=== PATIENT | male | born 1995 | race African-American/Black ===

== ENCOUNTER 2016-10-06 07:08 | Emergency (ER) | payer SELFPAY ==
[~2016-10-06] VITALS: Ht 190.5 cm; Wt 85.0 kg
[~2016-10-06 07:08] MED LIST: Z.0.NO CURRENT MEDS
[2016-10-06 07:10] VITALS: BP 122/80; PULSE 64; RESP 20; TEMP 97.9; O2SAT 99
--- NOTE | 2016-10-06 07:44 | PD ---
HPI Chief Complaint: Cold / Flu Symptoms Time Seen by Provider: 07:43 Travel History International Travel<30 days: No Contact w/Intl Traveler<30days: No Traveled to known affect area: No History of Present Illness HPI 20-year-old male presents to the emergency Department with complaint of sore throat since yesterday. Reports cough. Denies lump in throat, difficulty swallowing, unusual drooling. Reports painful swallowing. Denies ear pain, nasal congestion. Denies fever, vomiting. Reports headache. Has not taken any medications or tried any chance to review his symptoms. No known allergies. Has no other medical complaints. No other modifying factors or associated signs and symptoms. PFSH Social History Alcohol Use: Yes Tobacco Use: No Allergies-Medications (Allergen,Severity, Reaction): Coded Allergies: No Known Allergies (Unverified , 05/27/12) Reported Meds & Prescriptions Reported Meds & Active Scripts Active Magic Mouthwash Pediatric/Adult Liq (Lidocaine/Diphenhydr/Alum/Mg/Simeth) 60 Ml Susp 5 Ml SWISH-SPIT Q3HR PRN Each 5mL contains: Diphenydramine 4.5mg, Viscous Lidocaine 2% 10mg, Maalox Advanced Regular Strength 2.7ml Ibuprofen 800 Mg Tab 800 Mg PO Q6HR PRN Review of Systems Except as stated in HPI: all other systems reviewed are Neg Physical Exam Narrative GENERAL: Well-nourished, well-developed male patient, in no acute distress; afebrile, nontoxic-appearing SKIN: Warm and dry. No rash. HEAD: Atraumatic. Normocephalic. EYES: Pupils equal and round at 3 mm with brisk reaction. No scleral icterus. No injection or drainage. PERRLA. ENT: Mucosa pink and dry. Oropharynx with erythema; without exudate or edema. No Uvular edema. No uvular, palatal, or tonsillar deviation. Airway patent. EARS: Bilateral pinnae and external canals appear within normal limits. Bilateral tympanic membranes without erythema, dullness or perforation.. NECK: Trachea midline. Anterior cervical lymphadenopathy and tenderness. CARDIOVASCULAR: Regular rate and rhythm. No murmur appreciated. RESPIRATORY: No accessory muscle use. Clear to auscultation. Breath sounds equal bilaterally. GASTROINTESTINAL: Abdomen soft, non-tender, nondistended. Hepatic and splenic margins not palpable. Bowel sounds are active 4 quadrants. MUSCULOSKELETAL: No obvious deformities. No clubbing. No cyanosis. No edema. NEUROLOGICAL: Awake and alert. Oriented 3. No obvious cranial nerve deficits. Motor grossly within normal limits. Normal speech. Moves all extremities. PSYCHIATRIC: Appropriate mood and affect; insight and judgment normal. Data Data Last Documented VS Vital Signs Date Time Temp Pulse Resp B/P Pulse Ox O2 Delivery O2 Flow Rate FiO2 10/06/16 07:47 18 Room Air 10/06/16 07:10 97.9 64 122/80 99 Orders Group A Rapid Strep Screen (10/06/16 07:42) Strep Culture (Group A) (10/06/16 07:44) MDM Medical Decision Making Medical Screen Exam Complete: Yes Emergency Medical Condition: Yes Medical Record Reviewed: Yes Differential Diagnosis Viral pharyngitis, strep pharyngitis, less likely peritonsillar abscess Narrative Course 20-year-old male with sore throat since yesterday. Denies lump in throat, difficulty swallowing, unusual drooling. Patient is afebrile and nontoxic- appearing. He denies fever, vomiting. Rapid strep ordered. 0817: Rapid strep negative. Discussed viral illness and symptomatic management. Ibuprofen and Magic mouthwash prescribed for home. Patient verbalizes understanding and agreement with treatment plan. Patient is medically cleared and stable for discharge. Discussed reasons to return to the emergency department. Instructed patient to follow up with primary care provider. Patient agrees with treatment plan. The patients vital signs are stable and the patient is stable for outpatient follow-up and treatment. Patient discharged home, stable and in no acute distress. Diagnosis Primary Impression: Viral pharyngitis Referrals: Primary Care Physician Patient Instructions: General Instructions, Pharyngitis (ED) Departure Forms: Tests/Procedures, Work Release Enter return to work date: October 07, 2016 Additional Instructions: Get plenty of sleep/rest Rest your voice Drink plenty of fluids to prevent dehydration Use warm saltwater gargles to soothe throat pain Use an air humidifier/turn off ceiling fans Use throat lozenges as needed for sore throat Use ibuprofen or acetaminophen as needed to relieve pain and fever Follow-up with your primary care provider within 2-4 days Return immediately to the emergency department with worsening of symptoms Med/Other Pt SpecificInfo: Prescription(s) given Scripts Bdkxnkhjdiijfxu-Ckcnisvmw-Xnn-Alum-Simeth Liq (Magic Mouthwash Pediatric/Adult Liq)60 Ml Susp5 Ml SWISH-SPIT Q3HR PRN (SORE THROAT) #60 ML Ref 0 Each 5mL contains: Diphenydramine 4.5mg, Viscous Lidocaine 2% 10mg, Maalox Advanced Regular Strength 2.7ml Prov:Rosalia Braden 10/06/16 Ibuprofen 800 Mg [id number] Mg PO Q6HR PRN (PAIN) #30 TAB Ref 0 Prov:Rosalia Braden 10/06/16 Disposition: 01 DISCHARGE HOME Condition: Stable Rosalia Braden October 06, 2016 07:43
[2016-10-06] MEDS ORDERED: MAGICPED SWISH-SPIT (07:53)
[2016-10-06] MEDS ORDERED: IBUP800T23 PO (07:53)
== END 2016-10-06 08:31 | disposition home or self-care (01) ==
LOC: NEPK 07:08
DX: J02.9 Acute pharyngitis, unspecified (principal); B97.89 Other viral agents as the cause of diseases classified elsewhere; R05 Cough; R51 Headache
CPT/HCPCS: 87081; 87880; 99284

== ENCOUNTER 2016-10-08 09:15 | Emergency (ER) | payer SELFPAY ==
[~2016-10-08] VITALS: Ht 190.5 cm; Wt 84.0 kg
[~2016-10-08 09:15] MED LIST changes: +IBUP800T23 PO; +MAGICPED SWISH-SPIT; -Z.0.NO CURRENT MEDS
[2016-10-08 09:21] VITALS: BP 135/78; PULSE 76; RESP 15; TEMP 98.3; O2SAT 97
--- NOTE | 2016-10-08 09:37 | PD ---
HPI Chief Complaint: Cold / Flu Symptoms Time Seen by Provider: 09:37 Travel History International Travel<30 days: No Contact w/Intl Traveler<30days: No Traveled to known affect area: No History of Present Illness HPI 20-year-old male came to the emergency room with history of cough that worsened while he was at work at [employer]. He said he opened the oven door and when the heat last came out it made his cough worse and he was even unable to breathe at that point. He had to come out of the kitchen and go to the bathroom to catch his breath. Currently he seems absolutely fine. No respiratory issues. Patient says 2 days ago he was in the emergency room for sore throat as well. Yesterday he had a fever. The fever is gone today and he was feeling fine this morning when he woke up until the coughing episode happened. He is otherwise a healthy person. Patient does not recall any past history of reactive airway disease. [facility] Past Medical History Narrative Medical List of his past medical, surgical, social and family history is reviewed from the nursing note. Social History Alcohol Use: No Tobacco Use: Yes Substance Use: Yes (used to use marijuana") Allergies-Medications (Allergen,Severity, Reaction): Coded Allergies: No Known Allergies (Unverified , 10/08/16) Comments No known drug allergies. Reported Meds & Prescriptions Reported Meds & Active Scripts Active Ventolin Hfa 18 GM Inh (Albuterol Sulfate) 90 Mcg/Act Aer 2 Puff INH Q4-6H PRN Narrative Medication List of his home medications reviewed from the nursing note. Review of Systems Except as stated in HPI: all other systems reviewed are Neg Physical Exam Narrative GENERAL: Awake, alert, no obvious distress SKIN: Focused skin assessment warm/dry. HEAD: Atraumatic. Normocephalic. EYES: Pupils equal and round. No scleral icterus. No injection or drainage. ENT: No nasal bleeding or discharge. Mucous membranes pink and moist. NECK: Trachea midline. No JVD. CARDIOVASCULAR: Regular rate and rhythm. No murmur appreciated. RESPIRATORY: No accessory muscle use. Clear to auscultation. Breath sounds equal bilaterally. GASTROINTESTINAL: Abdomen soft, non-tender, nondistended. Hepatic and splenic margins not palpable. MUSCULOSKELETAL: No obvious deformities. No clubbing. No cyanosis. No edema. NEUROLOGICAL: Awake and alert. No obvious cranial nerve deficits. Motor grossly within normal limits. Normal speech. PSYCHIATRIC: Appropriate mood and affect; insight and judgment normal. Data Data Last Documented VS Vital Signs Date Time Temp Pulse Resp B/P Pulse Ox O2 Delivery O2 Flow Rate FiO2 10/08/16 09:21 98.3 76 15 135/78 97 MDM Medical Decision Making Medical Screen Exam Complete: Yes Emergency Medical Condition: Yes Medical Record Reviewed: Yes Differential Diagnosis Reactive airway disease, viral illness, bronchitis Narrative Course 9:45 AM patient will be discharged home with a prescription for albuterol inhaler. Procedures EKG Prior to Arrival: No Diagnosis Primary Impression: Reactive airway disease Qualified Code: J45.909 - Reactive airway disease, unspecified asthma severity , uncomplicated Referrals: Primary Care Physician 2 days Additional Instructions: Please return to the ER if the condition worsens or any other new concerns. You should quit smoking in order to get better. Take the inhaler 2 puffs every 4 hours till the symptoms subside. Med/Other Pt SpecificInfo: Prescription(s) given Scripts Albuterol 18 GM Inh (Ventolin Hfa 18 GM Inh)90 Mcg/Act Aer2 Puff INH Q4-6H PRN ( SHORTNESS OF BREATH) #1 INHALER Ref 0 Prov:Earl Pepe MD 10/08/16 Disposition: 01 DISCHARGE HOME Condition: Stable Earl Pepe MD October 08, 2016 09:37
[2016-10-08] MEDS ORDERED: VENTAER INH (09:46)
== END 2016-10-08 10:34 | disposition home or self-care (01) ==
LOC: NEPD 09:15
DX: J45.909 Unspecified asthma, uncomplicated (principal); Z72.0 Tobacco use
CPT/HCPCS: 99283

== ENCOUNTER 2016-11-16 08:24 | Emergency (ER) | payer SELFPAY ==
[~2016-11-16] VITALS: Ht 190.5 cm; Wt 85.0 kg
[~2016-11-16 08:24] MED LIST changes: -IBUP800T23 PO; -MAGICPED SWISH-SPIT; +VENTAER INH
[2016-11-16 08:26] VITALS: BP 113/74; PULSE 74; RESP 15; TEMP 98.2; O2SAT 98
[2016-11-16 08:40] VITALS: BP 115/61; PULSE 100; RESP 19; TEMP 98.4; O2SAT 99
[2016-11-16] MEDS ORDERED: SODIUM CHLOR 0.9% 1000 ML INJ 1,000 ML IV SCH (08:55)
[2016-11-16] MEDS ORDERED: SODIUM CHLORIDE 0.9% FLUSH 10 ML FLUSH IV FLUSH PRN (09:00)
[2016-11-16] MEDS ORDERED: ONDANSETRON HCL 4 MG/2 ML VIAL IVP ONE (09:00)
--- NOTE | 2016-11-16 09:03 | PD ---
HPI Chief Complaint: Flank/Kidney Pain Time Seen by Provider: 08:55 Travel History International Travel<30 days: No Contact w/Intl Traveler<30days: No Traveled to known affect area: No History of Present Illness HPI 20-year-old male with history of no significant past medical issues, presents to the ER today because he is having lower back pains, nausea and vomiting, not feeling well since yesterday. He denies any diarrhea, but has had subjective fevers. He does not know any sick contacts. He states that the pain is currently a 7 out of 10. Modifying Factors: None Associated Signs & Symptoms: Aching lower back pains, nausea and vomiting Risk Factors: None PFSH Past Medical History Medical History: Denies Significant Hx Tetanus Vaccination: > 5 Years Past Surgical History Surgical History: No Previous Surgery Social History Alcohol Use: No Tobacco Use: Yes Substance Use: Yes (used to use marijuana") Allergies-Medications (Allergen,Severity, Reaction): Coded Allergies: No Known Allergies (Unverified , 11/16/16) Reported Meds & Prescriptions Reported Meds & Active Scripts Active Ventolin Hfa 18 GM Inh (Albuterol Sulfate) 90 Mcg/Act Aer 2 Puff INH Q4-6H PRN Review of Systems Except as stated in HPI: all other systems reviewed are Neg Physical Exam Narrative GENERAL: Well-developed young -[place] male patient currently in mild distress. Awake and oriented 3. SKIN: Focused skin assessment warm/dry. HEAD: Atraumatic. Normocephalic. EYES: Pupils equal and round. No scleral icterus. No injection or drainage. ENT: No nasal bleeding or discharge. Mucous membranes pink and moist. NECK: Trachea midline. No JVD. CARDIOVASCULAR: Regular rate and rhythm. No murmur appreciated. RESPIRATORY: No accessory muscle use. Clear to auscultation. Breath sounds equal bilaterally. GASTROINTESTINAL: Abdomen soft, non-tender, nondistended. Hepatic and splenic margins not palpable. MUSCULOSKELETAL: No obvious deformities. No clubbing. No cyanosis. No edema. NEUROLOGICAL: Awake and alert. No obvious cranial nerve deficits. Motor grossly within normal limits. Normal speech. PSYCHIATRIC: Appropriate mood and affect; insight and judgment normal. Data Data Last Documented VS Vital Signs Date Time Temp Pulse Resp B/P Pulse Ox O2 Delivery O2 Flow Rate FiO2 11/16/16 08:40 98.4 100 19 115/61 99 Orders Complete Blood Count With Diff (11/16/16 08:55) Lipase (11/16/16 08:55) Urinalysis - C+S If Indicated (11/16/16 08:55) Iv Access Insert/Monitor (11/16/16 08:55) Ecg Monitoring (11/16/16 08:55) Oximetry (11/16/16 08:55) Ondansetron Inj (Zofran Inj) (11/16/16 09:00) Sodium Chlor 0.9% 1000 Ml Inj (Ns 1000 M (11/16/16 08:55) Sodium Chloride 0.9% Flush (Ns Flush) (11/16/16 09:00) Comprehensive Metabolic Panel (11/16/16 09:29) Ct Abd/Pel W/O Iv Contrast (11/16/16 09:44) Labs Laboratory Tests Test 11/16/16 09:00 White Blood Count 14.1 TH/MM3 Red Blood Count 4.59 MIL/MM3 Hemoglobin 13.4 GM/DL Hematocrit 39.3 % Mean Corpuscular Volume 85.7 FL Mean Corpuscular Hemoglobin 29.1 PG Mean Corpuscular Hemoglobin 34.0 % Concent Red Cell Distribution Width 13.9 % Platelet Count 208 TH/MM3 Mean Platelet Volume 9.3 FL Neutrophils (%) (Auto) 86.5 % Lymphocytes (%) (Auto) 6.9 % Monocytes (%) (Auto) 6.5 % Eosinophils (%) (Auto) 0.0 % Basophils (%) (Auto) 0.1 % Neutrophils # (Auto) 12.2 TH/MM3 Lymphocytes # (Auto) 1.0 TH/MM3 Monocytes # (Auto) 0.9 TH/MM3 Eosinophils # (Auto) 0.0 TH/MM3 Basophils # (Auto) 0.0 TH/MM3 CBC Comment DIFF FINAL Differential Comment Urine Color YELLOW Urine Turbidity CLEAR Urine pH 7.5 Urine Specific [place] 1.029 Urine Protein 30 mg/dL Urine Glucose (UA) NEG mg/dL Urine Ketones NEG mg/dL Urine Occult Blood SMALL Urine Nitrite NEG Urine Bilirubin NEG Urine Urobilinogen 2.0 MG/DL Urine Leukocyte Esterase NEG Urine RBC 22 /hpf Urine WBC 1 /hpf Urine Bacteria OCC /hpf Urine Mucus FEW /lpf Microscopic Urinalysis Comment CULT NOT INDICATED Sodium Level 136 MEQ/L Potassium Level 3.6 MEQ/L Chloride Level 102 MEQ/L Carbon Dioxide Level 21.6 MEQ/L Anion Gap 12 MEQ/L Blood Urea Nitrogen 10 MG/DL Creatinine 1.73 MG/DL Estimat Glomerular Filtration 61 ML/MIN Rate Random Glucose 142 MG/DL Calcium Level 9.3 MG/DL Total Bilirubin 0.5 MG/DL Aspartate Amino Transf 12 U/L (AST/SGOT) Alanine Aminotransferase 21 U/L (ALT/SGPT) Alkaline Phosphatase 61 U/L Total Protein 7.8 GM/DL Albumin 4.2 GM/DL Lipase 90 U/L MDM Medical Decision Making Medical Screen Exam Complete: Yes Emergency Medical Condition: Yes Medical Record Reviewed: Yes Interpretation(s) Laboratory Tests Test 11/16/16 09:00 White Blood Count 14.1 TH/MM3 (4.0-11.0) Neutrophils (%) (Auto) 86.5 % (16.0-70.0) Lymphocytes (%) (Auto) 6.9 % (9.0-44.0) Neutrophils # (Auto) 12.2 TH/MM3 (1.8-7.7) Urine Protein 30 mg/dL (NEG-TRACE) Urine Occult Blood SMALL (NEG) Urine RBC 22 /hpf (0-3) Urine Bacteria OCC /hpf (NONE) Urine Mucus FEW /lpf (OCC) Creatinine 1.73 MG/DL (0.60-1.30) Estimat Glomerular Filtration 61 ML/MIN (>89) Rate Random Glucose 142 MG/DL (74-106) Aspartate Amino Transf 12 U/L (15-37) (AST/SGOT) Last 24 hours Impressions Abdomen/Pelvis CT 11/16/16 0944 Signed Impressions: Service Date/Time: Wednesday, November 16, 2016 10:16 - CONCLUSION: There is no renal stone or obstruction. Lack of intravenous contrast makes exclusion of pyelonephritis difficult. Robby Zuniga MD FACR Differential Diagnosis Lower back pain, nausea and vomiting, malaiseviral syndrome versus UTI versus musculoskeletal back pain versus renal colic Narrative Course CAT scans did not show any signs of acute processes. Lab work did show leukocytosis and some blood in the urine. No obvious UTI identified. At this point, my plan would be to treat him with antibiotics, symptomatic relief, and have him follow-up with primary care physician. Return for any worsening in symptoms as needed. The plan was discussed with him and he states understanding. Diagnosis Primary Impression: Abdominal pain Additional Impression: Hematuria Med/Other Pt SpecificInfo: Prescription(s) given Scripts Ibuprofen (Motrin Ib)200 Mg [id number] Mg PO Q6HR PRN (PAIN SCALE 1 TO 10) #21 Prov:Mayte Nicholas MD 11/16/16 Ciprofloxacin (Cipro)500 Mg Agm262 Mg PO BID 7 Days Ref 0 Prov:Mayte Nicholas MD 11/16/16 Disposition: 01 DISCHARGE HOME Condition: Stable Mayte Nicholas MD Nov 16, 2016 09:02
[2016-11-16 09:20] LABS: AUTOMATED NEUTROPHIL # 12.2 TH/MM3 (1.8-7.7); BACTERIA, URINE OCC /hpf; BASOPHIL % 0.1 % (0.0-2.0); BLOOD, URINE SMALL (NEG); COMMENT (UR) CULT NOT INDICATED; CULTURE IF INDICATED CULT NOT INDICATED; GLUCOSE,URINE NEG (NEG); HEMATOCRIT 39.3 % (39.0-51.0); HEMO FLAGS DIFF FINAL; KETONE, URINE NEG (NEG); LYMPH % 6.9 % (9.0-44.0); MEAN CELL VOLUME 85.7 FL (80.0-100.0); MEAN CORPUSCULAR HEMOGLOBIN 29.1 PG (27.0-34.0); MONO % 6.5 % (0.0-8.0); MUCUS URINE FEW /lpf (OCC); NEUT % 86.5 % (16.0-70.0); NITRITE,URINE NEG (NEG); PH, URINE 7.5 (5.0-8.5); PLATELET COUNT 208 TH/MM3 (150-450); RED BLOOD COUNT 4.59 MIL/MM3 (4.50-5.90); RED CELL DISTRIBUTION WIDTH 13.9 % (11.6-17.2); URINE COLOR YELLOW (YELLW/STRAW); WHITE BLOOD COUNT 14.1 TH/MM3 (4.0-11.0)
[2016-11-16 09:52] LABS: ANION GAP 12 MEQ/L (5-15); AST (GOT) 12 U/L (15-37); BICARBONATE 21.6 MEQ/L (21.0-32.0); BLOOD UREA NITROGEN 10 MG/DL (7-18); CHLORIDE 102 MEQ/L (98-107); GLOMERULAR FILTRATION RATE 61 ML/MIN (>89); POTASSIUM 3.6 MEQ/L (3.5-5.1); SODIUM (NA) 136 MEQ/L (136-145)
[2016-11-16 09:53] LABS: ALT (GPT) 21 U/L (12-78)
[2016-11-16 09:56] LABS: ALKALINE PHOSPHATASE 61 U/L (45-117); TOTAL BILIRUBIN ADULT 0.5 MG/DL (0.2-1.0)
--- NOTE | 2016-11-16 10:44 | RADRPT ---
EXAM DATE/TIME: 11/16/2016 10:16 [facility] COMPARISON: No previous studies available for comparison. INDICATIONS : Right flank pain. ORAL CONTRAST: No oral contrast ingested. RADIATION DOSE: 9.96 CTDIvol (mGy) MEDICAL HISTORY : None SURGICAL HISTORY : None. ENCOUNTER: Initial ACUITY: 2 days PAIN SCALE: 5/10 LOCATION: Right flank TECHNIQUE: Volumetric scanning of the abdomen and pelvis was performed. Using automated exposure control and ad justment of the mA and/or kV according to patient size, radiation dose was kept as low as reasonably achievable to obtain optimal diagnostic quality images. FINDINGS: The lung base is are clear The liver, spleen, pancreas and adrenals are unremarkable. The right kidney there is no stone or perinephric stranding. Left kidney: The left kidney is unremarkable. There is no adenopathy, free air or hernia Pelvic contents are normal. Review of bone windows reveals mild degenerative changes in lower lumbar spine. CONCLUSION: There is no renal stone or obstruction. Lack of intravenous contrast makes exclusion of pyelonephrit is difficult. Robby Zuniga MD FACR on November 16, 2016 at 10:40 Board Certified Radiologist. This report was verified electronically.
[2016-11-16] MEDS ORDERED: CIPR-9 PO (11:05)
[2016-11-16] MEDS ORDERED: IBUP-1129 PO (11:05)
== END 2016-11-16 12:01 | disposition home or self-care (01) ==
LOC: NEPC 08:24
DX: R10.9 Unspecified abdominal pain (principal); R31.9 Hematuria, unspecified; R11.2 Nausea with vomiting, unspecified; Z72.0 Tobacco use
CPT/HCPCS: 74176; 80053; 81001; 83690; 85025; 96361; 96374; 99285; J2405; J7030

== ENCOUNTER 2016-12-11 10:52 | Emergency (ER) | payer SELFPAY ==
[~2016-12-11] VITALS: Ht 190.5 cm; Wt 85.0 kg
[~2016-12-11 10:52] MED LIST changes: +CIPR-9 PO; +IBUP-1129 PO
[2016-12-11 10:54] VITALS: BP 125/77; PULSE 77; RESP 20; TEMP 97.9
[2016-12-11] MEDS ORDERED: IBUP800T23 PO (12:01)
[2016-12-11] MEDS ORDERED: AMOX500C PO (12:01)
[2016-12-11] MEDS ORDERED: PERI0.126 SWISH-SPIT (12:01)
--- NOTE | 2016-12-11 12:04 | PD ---
HPI Chief Complaint: Oral / Dental Pain or Problem Time Seen by Provider: 12:00 Travel History International Travel<30 days: No Contact w/Intl Traveler<30days: No Traveled to known affect area: No History of Present Illness HPI 20-year-old male presents emergency Department with complaint of left lower tooth pain 2 weeks. Denies facial edema, erythema. Denies fever, vomiting. Denies throat pain, difficulty swallowing. Says there is an area around the tooth that is bleeding and wants to make sure that when he spits up for the blood is coming from. Tooth pain is worse with palpation. Has been using Orajel for symptom management. No known allergies. Has no other medical complaints. No other modifying factors or associated signs and symptoms. [facility] Social History Alcohol Use: No Tobacco Use: Yes Substance Use: Yes (used to use marijuana") Allergies-Medications (Allergen,Severity, Reaction): Coded Allergies: No Known Allergies (Unverified , 12/11/16) Reported Meds & Prescriptions Reported Meds & Active Scripts Active Peridex Liq (Chlorhexidine Gluconate (Mouth) Liq) 0.12% Soln 15 Ml SWISH-SPIT BID 10 Days Ibuprofen 800 Mg Tab 800 Mg PO Q6HR PRN Amoxicillin 500 Mg Cap 500 Mg PO BID 10 Days Cipro (Ciprofloxacin HCl) 500 Mg Tab 500 Mg PO BID 7 Days Review of Systems Except as stated in HPI: all other systems reviewed are Neg Physical Exam Narrative GENERAL: Well-nourished, well-developed male patient, in no acute distress; afebrile, nontoxic-appearing SKIN: Warm and dry. HEAD: Atraumatic. Normocephalic. No facial edema, erythema, tenderness on palpation. No lymphadenopathy. EYES: Pupils equal and round. No scleral icterus. No injection or drainage. ENT: Mucosa pink and moist. No erythema or exudates. No uvular edema. No uvular , palatal, or tonsillar deviation. Airway patent. MOUTH: Mucous membranes moist, no lesions, tongue and gums appear normal. Tooth #17 with tenderness on palpation; part of the gingiva is overlying the tooth and has a very minimal amount of bright red drainage noted. Surrounding gingiva is without erythema, edema, drainage. No obvious abscess noted. NECK: Trachea midline. No lymphadenopathy. CARDIOVASCULAR: Regular rate. RESPIRATORY: No accessory muscle use. GASTROINTESTINAL: Flat. MUSCULOSKELETAL: No obvious deformities. No clubbing. No cyanosis. No edema. NEUROLOGICAL: Awake and alert. Oriented 3. No obvious cranial nerve deficits. Motor grossly within normal limits. Normal speech. PSYCHIATRIC: Appropriate mood and affect; insight and judgment normal. Data Data Last Documented VS Vital Signs Date Time Temp Pulse Resp B/P Pulse Ox O2 Delivery O2 Flow Rate FiO2 12/11/16 10:54 97.9 77 20 125/77 Room Air MDM Medical Decision Making Medical Screen Exam Complete: Yes Emergency Medical Condition: Yes Medical Record Reviewed: Yes Differential Diagnosis Dentalgia, dental abscess, dental caries, gingivitis Narrative Course 20-year-old male with dentalgia to tooth #17. No facial edema, erythema. No fever or vomiting. Emergency dental information sheet provided to patient. Instructed patient to follow up with dentist. Amoxicillin, Peridex mouth rinse , ibuprofen prescribed for home. Instructed patient to follow up with primary care provider. Patient verbalizes understanding and agreement with treatment plan. Patient is medically cleared and stable for discharge. Discussed reasons to return to the emergency department. Patient agrees with treatment plan. The patients vital signs are stable and the patient is stable for outpatient follow-up and treatment. Patient discharged home, stable and in no acute distress. Diagnosis Primary Impression: Dentalgia Referrals: Primary Care Physician Patient Instructions: Dental Abscess (ED), General Instructions, Toothache (ED) Departure Forms: Tests/Procedures, Work Release Enter return to work date: Dec 12, 2016 Additional Instructions: Complete full course of antibiotics Ibuprofen or Tylenol as directed and as needed to reduce pain and inflammation Use Peridex as directed for oral hygiene Warm or cool compresses to the affected area Follow-up with dentist Follow-up with primary care provider Return to emergency department immediately with worsening of symptoms Med/Other Pt SpecificInfo: Prescription(s) given Scripts Chlorhexidine Gluconate (Mouth) Liq (Peridex Liq)0.12% Soln15 Ml SWISH-SPIT BID 10 Days Ref 0 Prov:Rosalia Braden 12/11/16 Ibuprofen 800 Mg [id number] Mg PO Q6HR PRN (PAIN) #30 TAB Ref 0 Prov:Rosalia Braden BIOLOGICS SPECIALIST 12/11/16 Amoxicillin 500 Mg Cly453 Mg PO BID 10 Days Ref 0 Prov:Rosalia Braden 12/11/16 Disposition: 01 DISCHARGE HOME Condition: Stable Rosalia Braden Dec 11, 2016 12:04
== END 2016-12-11 12:48 | disposition home or self-care (01) ==
LOC: NEPK 10:52
DX: K08.89 Other specified disorders of teeth and supporting structures (principal)
CPT/HCPCS: 99284

== ENCOUNTER 2017-01-01 22:14 | Emergency (ER) | payer SELFPAY ==
[~2017-01-01] VITALS: Ht 190.5 cm; Wt 85.0 kg
[~2017-01-01 22:14] MED LIST changes: +AMOX500C PO; -IBUP-1129 PO; +IBUP800T23 PO; +PERI0.126 SWISH-SPIT; -VENTAER INH
[2017-01-01 22:21] VITALS: BP 146/92; PULSE 102; RESP 15; TEMP 99; O2SAT 99
--- NOTE | 2017-01-01 22:28 | PD ---
Physical Exam Time Seen by Provider: 22:26 Narrative 21 y/o male here with occasional needle-like chest pain, cough with orange- tinted sputum which started 30 minutes ago. Vital signs reviewed. Seen at triage desk. Awaiting bed placement. Data Data Last Documented VS Vital Signs Date Time Temp Pulse Resp B/P Pulse Ox O2 Delivery O2 Flow Rate FiO2 01/01/17 22:21 99.0 102 15 146/92 99 Room Air [facility] Medical Record Reviewed: Yes Supervised Visit with ASHWIN: Angel Luis Cardenas Jan 01, 2017 22:27
[2017-01-01 23:37] LABS: AUTOMATED NEUTROPHIL # 4.9 TH/MM3 (1.8-7.7); BASOPHIL % 0.3 % (0.0-2.0); EOSINOPHIL # 0.2 TH/MM3 (0-0.4); HEMATOCRIT 44.5 % (39.0-51.0); HEMO FLAGS DIFF FINAL; LYMPH % 31.5 % (9.0-44.0); LYMPHOCYTE # 2.6 TH/MM3 (1.0-4.8); MEAN CORPUSCULAR HEMOGLOBIN 29.2 PG (27.0-34.0); MEAN CORPUSCULAR HGB CONC 33.6 % (32.0-36.0); MONO % 6.8 % (0.0-8.0); NEUT % 59.4 % (16.0-70.0); PLATELET COUNT 275 TH/MM3 (150-450); RED BLOOD COUNT 5.11 MIL/MM3 (4.50-5.90); WHITE BLOOD COUNT 8.3 TH/MM3 (4.0-11.0)
--- NOTE | 2017-01-01 23:40 | RADRPT ---
EXAM DATE/TIME: 01/01/2017 23:23 [facility] COMPARISON: No previous studies available for comparison. INDICATIONS : Chest pain. MEDICAL HISTORY : None. SURGICAL HISTORY : None. ENCOUNTER: Initial ACUITY: 2 weeks PAIN SCORE: 4/10 LOCATION: chest FINDINGS: Single AP view of the chest. The lungs are clear. Cardiomediastinal silhouette within normal limits. No evidence of pleural effusion or pneumothorax. CONCLUSION: No acute cardiopulmonary disease identified. Harvinder Lindsay MD on January 01, 2017 at 23:38 Board Certified Radiologist. This report was verified electronically.
--- NOTE | 2017-01-01 23:43 | PD ---
HPI . Chest pain Chief Complaint: Chest Pain Time Seen by Provider: 23:22 Travel History International Travel<30 days: No Contact w/Intl Traveler<30days: No Traveled to known affect area: No History of Present Illness HPI Patient presents with a chief complaint of chest pain. Onset a week. He describes it as a pins and needles which comes and goes. He states that his symptoms are very minor. He has been perusing the Internet and became concerned and decided to come get it checked out tonight. The patient also states that he spit up something orange tonight. He states he did eat something orange prior to this but he just wants to make sure that it is okay. He reports no exacerbating or relieving factors. PFSH Past Medical History Medical History: Denies Significant Hx Diminished Hearing: No Immunizations Current: Yes Tetanus Vaccination: > 5 Years Influenza Vaccination: No Past Surgical History Surgical History: No Previous Surgery Social History Alcohol Use: No Tobacco Use: Yes (6 per day) Substance Use: Yes (marijuana) Allergies-Medications (Allergen,Severity, Reaction): Coded Allergies: No Known Allergies (Unverified , 01/01/17) Reported Meds & Prescriptions Reported Meds & Active Scripts Active No Active Prescriptions or Reported Medications Review of Systems Except as stated in HPI: all other systems reviewed are Neg Cardiovascular: Positive: Chest Pain or Discomfort Respiratory: No: Cough, Shortness of Breath Gastrointestinal: No: Nausea, Vomiting, Diarrhea Physical Exam Narrative GENERAL: Patient is smiling in no distress. SKIN: Warm and dry. HEAD: Atraumatic. Normocephalic. EYES: Pupils equal and round. Extraocular movements are intact. ENT: No nasal bleeding or discharge. Mucous membranes pink and moist. NECK: Trachea midline. Neck is supple. CARDIOVASCULAR: Regular rate and rhythm. Heart sounds are normal. RESPIRATORY: No accessory muscle use. Lungs are clear with full air movement throughout. Chest wall is nontender. GASTROINTESTINAL: Abdomen soft, non-tender, nondistended. MUSCULOSKELETAL: No obvious deformities. No edema. NEUROLOGICAL: Awake and alert. No obvious cranial nerve deficits. Motor grossly within normal limits. Normal speech. PSYCHIATRIC: Appropriate mood and affect; insight and judgment normal. Data Data Last Documented VS Vital Signs Date Time Temp Pulse Resp B/P Pulse Ox O2 Delivery O2 Flow Rate FiO2 01/01/17 22:21 99.0 102 15 146/92 99 Room Air Orders Basic Metabolic Panel (Bmp) (01/01/17 23:22) Ckmb (Isoenzyme) Profile (01/01/17 23:22) Complete Blood Count With Diff (01/01/17 23:22) Magnesium (Mg) (01/01/17 23:22) Troponin I (01/01/17 23:22) Chest, Single Ap (01/01/17 23:22) CKMB (01/01/17 23:25) CKMB% (01/01/17 23:25) Labs Laboratory Tests Test 01/01/17 23:25 White Blood Count 8.3 TH/MM3 Red Blood Count 5.11 MIL/MM3 Hemoglobin 14.9 GM/DL Hematocrit 44.5 % Mean Corpuscular Volume 87.0 FL Mean Corpuscular Hemoglobin 29.2 PG Mean Corpuscular Hemoglobin 33.6 % Concent Red Cell Distribution Width 14.0 % Platelet Count 275 TH/MM3 Mean Platelet Volume 8.5 FL Neutrophils (%) (Auto) 59.4 % Lymphocytes (%) (Auto) 31.5 % Monocytes (%) (Auto) 6.8 % Eosinophils (%) (Auto) 2.0 % Basophils (%) (Auto) 0.3 % Neutrophils # (Auto) 4.9 TH/MM3 Lymphocytes # (Auto) 2.6 TH/MM3 Monocytes # (Auto) 0.6 TH/MM3 Eosinophils # (Auto) 0.2 TH/MM3 Basophils # (Auto) 0.0 TH/MM3 CBC Comment DIFF FINAL Differential Comment Sodium Level 141 MEQ/L Potassium Level 3.8 MEQ/L Chloride Level 105 MEQ/L Carbon Dioxide Level 29.8 MEQ/L Anion Gap 6 MEQ/L Blood Urea Nitrogen 15 MG/DL Creatinine 1.50 MG/DL Estimat Glomerular Filtration 71 ML/MIN Rate Random Glucose 83 MG/DL Calcium Level 9.7 MG/DL Magnesium Level 2.4 MG/DL Total Creatine Kinase 324 U/L Creatine Kinase MB LESS THAN 0.5 NG/ML Creatine Kinase MB % 0.2 % Troponin I LESS THAN 0.02 NG/ML MDM Medical Decision Making Medical Screen Exam Complete: Yes Emergency Medical Condition: Yes Interpretation(s) EKG shows a normal sinus rhythm. He has LVH. He has no ST segment elevation or depression. Differential Diagnosis Differential diagnosis of chest pain includes but is not limited to musculoskeletal pain, pulmonary embolism, acute coronary syndrome, pneumonia, pleurisy Narrative Course Patient presents with a pins and needle sensation in his chest for the last week. The symptoms are brief and very minor. I suspect that he will be evaluated and discharged. CBC & BMP Diagram 01/01/17 23:25 Cardiac enzymes negative Last Impressions Chest X-Ray 01/01/17 [id number] Signed Impressions: Service Date/Time: , January 01, 2017 23:23 - CONCLUSION: No acute cardiopulmonary disease identified. Harvinder Lindsay MD The history, exam, diagnostic testing, and current condition do not suggest any significant pathology to warrant further testing, continued ED treatment, admission, or surgical evaluation at this point. The patient's condition is stable and appropriate for discharge. Diagnosis Primary Impression: Chest pain Qualified Code: R07.9 - Chest pain, unspecified type Scripts No Active Prescriptions or Reported Meds Disposition: 01 DISCHARGE HOME Condition: Stable Vanessa Ceballos MD Jan 01, 2017 23:42
[2017-01-02 00:05] LABS: CREATINE KINASE 324 U/L (39-308)
[2017-01-02 00:18] LABS: CKMB LESS THAN 0.5 NG/ML (0.5-3.6)
[2017-01-02 00:28] LABS: ANION GAP 6 MEQ/L (5-15); BICARBONATE 29.8 MEQ/L (21.0-32.0); BLOOD UREA NITROGEN 15 MG/DL (7-18); CHLORIDE 105 MEQ/L (98-107); GLOMERULAR FILTRATION RATE 71 ML/MIN (>89); MAGNESIUM 2.4 MG/DL (1.5-2.5); POTASSIUM 3.8 MEQ/L (3.5-5.1); SODIUM (NA) 141 MEQ/L (136-145)
--- NOTE | 2017-01-02 07:53 | EKG ---
Date Performed: 01/01/2017 Time Performed: 22:55:37 PTAGE: 21 years EKG: Sinus rhythm LEFT VENTRICULAR HYPERTROPHY AND ST-T CHANGE ABNORMAL ECG NO PREVIOUS TRACING DOCTOR: Colby Hanna Interpretating Date/Time 01/02/2017 07:52:42
== END 2017-01-02 00:58 | disposition home or self-care (01) ==
LOC: NEPE 22:14
DX: R07.9 Chest pain, unspecified (principal); I51.7 Cardiomegaly; R94.31 Abnormal electrocardiogram [ECG] [EKG]; F17.200 Nicotine dependence, unspecified, uncomplicated
CPT/HCPCS: 71010; 80048; 82550; 82552; 83735; 84484; 85025; 93005; 99284

== ENCOUNTER 2017-03-11 14:09 | Emergency (ER) | payer SELFPAY ==
[~2017-03-11] VITALS: Ht 190.5 cm; Wt 88.0 kg
[2017-03-11 14:10] VITALS: BP 127/77; PULSE 64; RESP 16; TEMP 97.9; O2SAT 100
--- NOTE | 2017-03-11 14:26 | PD ---
Physical Exam Date Seen by Provider: Mar 11, 2017 Time Seen by Provider: 14:25 Narrative 21 year old male here for chest pain. pressure like. Going on for months but worst recently. Worst on left. No other medical issues. No injuries. 10. Tightness Vitals stable in triage. Awaiting bed placement. Data Data Last Documented VS Vital Signs Date Time Temp Pulse Resp B/P (MAP) Pulse Ox O2 Delivery O2 Flow Rate FiO2 03/11/17 14:10 97.9 64 16 127/77 (94) 100 Room Air [facility] Medical Record Reviewed: Yes Supervised Visit with ASHWIN: No Scripts No Active Prescriptions or Reported Meds Javier Gonzalez Mar 11, 2017 14:26
--- NOTE | 2017-03-11 15:08 | RADRPT ---
EXAM DATE/TIME: 03/11/2017 14:52 [place] COMPARISON: No previous studies available for comparison. INDICATIONS : Chest pain. MEDICAL HISTORY : Smoker. SURGICAL HISTORY : None. ENCOUNTER: Initial ACUITY: 1 day PAIN SCORE: 6/10 LOCATION: Bilateral chest FINDINGS: PA and lateral views of the chest demonstrate the lungs to be symmetrically aerated without evidence of mass, infiltrate or effusion. The cardiomediastinal contours are unremarkable. Osseous structure s are intact. CONCLUSION: 1. No acute cardiopulmonary disease. Nolberto Lopez MD on March 11, 2017 at 15:07 Board Certified Radiologist. This report was verified electronically.
--- NOTE | 2017-03-11 15:33 | PD ---
HPI Chief Complaint: Chest Pain Time Seen by Provider: 15:33 Travel History International Travel<30 days: No Contact w/Intl Traveler<30days: No Traveled to known affect area: No History of Present Illness HPI 21-year-old male with no significant medical history presents to emergency department for evaluation of intermittent chest wall tightness over the last month. Abrasion states it happens mostly after a workout or running. Denies any association shortness of breath. It does not radiate anywhere. He feels as though his muscle spasm. He stopped smoking tobacco cigarettes marijuana 4 days ago with hopes that this would help. Denies any recent illnesses, fever, chills. He has no other symptoms to report. He has no cardiac history. [facility] Past Medical History Medical History: Denies Significant Hx Diminished Hearing: No Immunizations Current: Yes Social History Alcohol Use: No Tobacco Use: Yes (6 per day) Substance Use: Yes (marijuana) Allergies-Medications (Allergen,Severity, Reaction): Coded Allergies: No Known Allergies (Unverified , 03/11/17) Reported Meds & Prescriptions Reported Meds & Active Scripts Active No Active Prescriptions or Reported Medications Review of Systems Except as stated in HPI: all other systems reviewed are Neg Physical Exam Narrative GENERAL: Well-nourished, well-developed patient, ambulatory no acute distress SKIN: Focused skin assessment warm/dry. HEAD: Normocephalic. EYES: No scleral icterus. No injection or drainage. NECK: Supple, trachea midline. No JVD or lymphadenopathy. CARDIOVASCULAR: Regular rate and rhythm without murmurs, gallops, or rubs. RESPIRATORY: Breath sounds equal bilaterally. No accessory muscle use. No tenderness elicited palpation of the anterior thoracic cage. No crepitus. Even respirations. GASTROINTESTINAL: Abdomen soft, non-tender, nondistended. MUSCULOSKELETAL: No cyanosis, or edema. BACK: Nontender without obvious deformity. No CVA tenderness. Data Data Last Documented VS Vital Signs Date Time Temp Pulse Resp B/P (MAP) Pulse Ox O2 Delivery O2 Flow Rate FiO2 03/11/17 15:55 03/11/17 15:39 69 16 99 Room Air 03/11/17 14:10 97.9 Orders Orders Chest, Pa & Lat (03/11/17 ) [facility] Medical Decision Making Medical Screen Exam Complete: Yes Emergency Medical Condition: Yes Medical Record Reviewed: Yes Differential Diagnosis Muscle spasm versus strain versus pleuritic pain Narrative Course 21-year-old male presents to the emergency department for evaluation of intermittent chest wall tightness over the last month. Patient appears without distress. He is currently not having any symptoms. He has no cardiac history. Chest x-rays without acute cardiopulmonary pulmonary disease. I offered reassurance and encouraged follow-up with primary care provider. He agrees to return immediately with any acute worsening of symptoms. Diagnosis Primary Impression: Chest wall muscle strain Qualified Codes: S29.011A - Strain of muscle and tendon of front wall of thorax, initial encounter Referrals: Primary Care Physician Patient Instructions: Chest Wall Pain (GEN), General Instructions Additional Instructions: Tylenol or ibuprofen as dry for the package as needed for pain Follow-up with a primary care provider Return immediately with any acute worsening of symptoms Med/Other Pt SpecificInfo: No Change to Meds Scripts No Active Prescriptions or Reported Meds Disposition: 01 DISCHARGE HOME Condition: Stable Luna Mora Mar 11, 2017 15:33
[2017-03-11 15:39] VITALS: BP 136/83; PULSE 69; RESP 16; O2SAT 99
== END 2017-03-11 15:57 | disposition home or self-care (01) ==
LOC: NEPD 14:09
DX: S29.011A Strain of muscle and tendon of front wall of thorax, initial encounter (principal); F17.210 Nicotine dependence, cigarettes, uncomplicated; X58.XXXA Exposure to other specified factors, initial encounter
CPT/HCPCS: 71020; 99283

== ENCOUNTER 2017-03-29 18:09 | Emergency (ER) | payer SELFPAY ==
[~2017-03-29] VITALS: Ht 190.5 cm; Wt 87.2 kg
[2017-03-29 18:11] VITALS: BP 126/73; PULSE 75; RESP 18; TEMP 99.1; O2SAT 100
--- NOTE | 2017-03-29 19:24 | PD ---
HPI Chief Complaint: Abdominal Pain Time Seen by Provider: 19:10 Travel History International Travel<30 days: No Contact w/Intl Traveler<30days: No Traveled to known affect area: No History of Present Illness HPI 21-year-old male complaining of left-sided abdominal pressure and urinary frequency. Patient states that the symptoms started this afternoon. Patient states that he has mild pressure on the left side of the abdomen, not pain. Patient denies any injury to the area. Patient denies any fever chills. Patient denies any coughing congestion. Patient states that the pressure does not change with movement. Patient denies any nausea vomiting diarrhea. Patient denies any dysuria. Patient denies any back pain. PFSH Past Medical History Diminished Hearing: No Respiratory: Yes (ACUTE BRONCHITIS) Immunizations Current: Yes Tetanus Vaccination: Unknown Influenza Vaccination: No Past Surgical History Surgical History: No Previous Surgery Social History Alcohol Use: No Tobacco Use: Yes (6 per day) Substance Use: Yes (marijuana) Allergies-Medications (Allergen,Severity, Reaction): Coded Allergies: No Known Allergies (Unverified , 03/29/17) Reported Meds & Prescriptions Reported Meds & Active Scripts Active No Active Prescriptions or Reported Medications Review of Systems General / Constitutional: No: Fever Eyes: No: Visual changes HENT: No: Headaches Cardiovascular: No: Chest Pain or Discomfort Respiratory: No: Shortness of Breath Gastrointestinal: No: Abdominal Pain Genitourinary: No: Dysuria Musculoskeletal: No: Pain Skin: No Rash Neurologic: No: Weakness Psychiatric: No: Depression Endocrine: No: Polydipsia Hematologic/Lymphatic: No: Easy Bruising Physical Exam Narrative GENERAL: Well-nourished, well-developed patient. SKIN: Focused skin assessment warm/dry. HEAD: Normocephalic. EYES: No scleral icterus. No injection or drainage. NECK: Supple, trachea midline. No JVD or lymphadenopathy. CARDIOVASCULAR: Regular rate and rhythm without murmurs, gallops, or rubs. RESPIRATORY: Breath sounds equal bilaterally. No accessory muscle use. GASTROINTESTINAL: Abdomen soft, non-tender, nondistended. MUSCULOSKELETAL: No cyanosis, or edema. BACK: Nontender without obvious deformity. No CVA tenderness. Neurologic exam normal. Data Data Last Documented VS Vital Signs Date Time Temp Pulse Resp B/P (MAP) Pulse Ox O2 Delivery O2 Flow Rate FiO2 03/29/17 18:11 99.1 75 18 126/73 (90) 100 Room Air Orders Orders Urinalysis - C+S If Indicated (03/29/17 19:15) Labs Laboratory Tests Test 03/29/17 19:19 Urine Color YELLOW Urine Turbidity CLEAR Urine pH 6.0 Urine Specific [place] 1.033 Urine Protein TRACE mg/dL Urine Glucose (UA) NEG mg/dL Urine Ketones NEG mg/dL Urine Occult Blood SMALL Urine Nitrite NEG Urine Bilirubin NEG Urine Urobilinogen 2.0 MG/DL Urine Leukocyte Esterase NEG Urine RBC 4 /hpf Urine WBC 1 /hpf Urine Mucus FEW /lpf Microscopic Urinalysis Comment CULT NOT INDICATED MDM Medical Decision Making Medical Screen Exam Complete: Yes Emergency Medical Condition: Yes Interpretation(s) 7 PM. UA is negative. Differential Diagnosis Differential diagnosis including musculoskeletal, nephrolithiasis, pyelonephritis. Narrative Course 21-year-old male with left-sided abdominal pressure and urinary frequency. Diagnosis Primary Impression: Muscle strain Patient Instructions: General Instructions Additional Instructions: Tylenol or Advil for pain. Follow-up with personal physician. Med/Other Pt SpecificInfo: No Change to Meds Scripts No Active Prescriptions or Reported Meds Disposition: 01 DISCHARGE HOME Condition: Stable Rudy Lane MD Mar 29, 2017 19:24
[2017-03-29 19:36] LABS: BLOOD, URINE SMALL (NEG); COMMENT (UR) CULT NOT INDICATED; CULTURE IF INDICATED CULT NOT INDICATED; GLUCOSE,URINE NEG (NEG); KETONE, URINE NEG (NEG); MUCUS URINE FEW /lpf (OCC); NITRITE,URINE NEG (NEG); URINE COLOR YELLOW (YELLW/STRAW)
== END 2017-03-29 20:25 | disposition home or self-care (01) ==
LOC: NEPD 18:09
DX: S39.011A Strain of muscle, fascia and tendon of abdomen, initial encounter (principal); R35.0 Frequency of micturition; F17.200 Nicotine dependence, unspecified, uncomplicated; X58.XXXA Exposure to other specified factors, initial encounter
CPT/HCPCS: 81001; 99283

== ENCOUNTER 2017-04-18 13:16 | Emergency (ER) | payer SELFPAY ==
[~2017-04-18] VITALS: Ht 190.5 cm; Wt 85.0 kg
[2017-04-18 13:18] VITALS: BP 154/91; PULSE 102; RESP 14; TEMP 98.4; O2SAT 95
--- NOTE | 2017-04-18 13:49 | PD ---
HPI Chief Complaint: ENT Complaint Time Seen by Provider: 13:30 Travel History International Travel<30 days: No Contact w/Intl Traveler<30days: No Traveled to known affect area: No History of Present Illness HPI 21-year-old male presents to the emergency department with complaint of dry throat for one week and noticing blood in his sputum one time yesterday and then again this morning. Denies coughing up blood. Says he is clearing the back of his throat and spitting out the sputum with the noted blood specks. Denies throat pain. Denies cough, nasal congestion, ear pain, chest pain, shortness of breath. Denies fever, vomiting. Also voices concern of a nontender, lump under his chin that he noticed 4 months ago. Has not taken any medications or tried any treatments to relieve the symptoms. Symptoms are mild in severity. No known relieving or aggravating factors. No known allergies. Does not have an established primary care provider. Denies significant past medical history. Reports tobacco use. No other modifying factors or associated signs and symptoms. PFSH Past Medical History Diminished Hearing: No Respiratory: Yes (ACUTE BRONCHITIS) Immunizations Current: Yes Social History Alcohol Use: No Tobacco Use: Yes (6 per day) Substance Use: Yes (marijuana) Allergies-Medications (Allergen,Severity, Reaction): Coded Allergies: No Known Allergies (Unverified , 03/29/17) Reported Meds & Prescriptions Reported Meds & Active Scripts Active No Active Prescriptions or Reported Medications Review of Systems Except as stated in HPI: all other systems reviewed are Neg Physical Exam Narrative GENERAL: Well-nourished, well-developed black male patient, in no acute distress ; afebrile, nontoxic-appearing SKIN: Warm and dry. Approximately 1 cm in diameter palpable lump to the underneath of the chin, more left-sided, that is nontender and without erythema or edema. HEAD: Atraumatic. Normocephalic. EYES: Pupils equal and round. No scleral icterus. No injection or drainage. ENT: Mucosa pink and moist. No erythema or exudates. No uvular edema. No uvular , palatal, or tonsillar deviation. Airway patent. EARS: Bilateral pinnae and external canals appear within normal limits. Bilateral tympanic membranes without erythema, dullness or perforation. NECK: Trachea midline. No lymphadenopathy. CARDIOVASCULAR: Regular rate and rhythm. No murmur appreciated. RESPIRATORY: No accessory muscle use. Clear to auscultation. Breath sounds equal bilaterally. No retractions or tachypnea. GASTROINTESTINAL: Abdomen soft, non-tender, nondistended. Hepatic and splenic margins not palpable. Bowel sounds are active 4 quadrants. MUSCULOSKELETAL: No obvious deformities. No clubbing. No cyanosis. No edema. NEUROLOGICAL: Awake and alert. Oriented 3. No obvious cranial nerve deficits. Motor grossly within normal limits. Normal speech. Moves all extremities. 5/5 strength to all extremities. PSYCHIATRIC: Appropriate mood and affect; insight and judgment normal. Data Data Last Documented VS Vital Signs Date Time Temp Pulse Resp B/P (MAP) Pulse Ox O2 Delivery O2 Flow Rate FiO2 04/18/17 14:12 90 16 152/82 (105) 97 04/18/17 13:18 98.4 Orders Orders Ed Discharge Order (04/18/17 13:49) [facility] Medical Decision Making Medical Screen Exam Complete: Yes Emergency Medical Condition: Yes Medical Record Reviewed: Yes Differential Diagnosis Seasonal allergies, pharyngitis, bronchitis Narrative Course 21-year-old male with complaint of throat dryness and specks of blood in his sputum. He is not coughing up blood. He is expectorating it from secretions in the back of his throat. Patient is afebrile and nontoxic-appearing. Denies fever, vomiting. He denies sore throat. I discussed reasons for the patient to return back to the emergency department and he became aggravated and demanded a reason for the specks blood in his sputum. I offered to do a rapid strep and he declined. I discussed the patient with Dr. Vizcarra, my attending physician, and he agrees with my plan of care and patient discharge. Instructed patient to follow up with primary care provider. Patient verbalizes understanding and agreement with treatment plan. Patient is medically cleared and stable for discharge. Discussed reasons to return to the emergency department. Patient agrees with treatment plan. The patients vital signs are stable and the patient is stable for outpatient follow-up and treatment. Patient discharged home, stable and in no acute distress. Diagnosis Primary Impression: Throat dryness Additional Impression: Blood in sputum Referrals: [facility] Primary Care Physician Patient Instructions: Allergic Rhinitis (ED), General Instructions Additional Instructions: [id number] Zyrtec or Claritin as directed and as needed for seasonal allergies Follow-up with primary care provider Return to the emergency department immediately with worsening of symptoms, particularly with symptoms as discussed Med/Other Pt SpecificInfo: No Meds Exist/No RX given Scripts No Active Prescriptions or Reported Meds Disposition: 01 DISCHARGE HOME Condition: Stable Rosalia Braden Apr 18, 2017 13:49
[2017-04-18 14:12] VITALS: BP 152/82
== END 2017-04-18 14:12 | disposition home or self-care (01) ==
LOC: NEPD 13:16
DX: J39.2 Other diseases of pharynx (principal); R04.2 Hemoptysis; Z72.0 Tobacco use
CPT/HCPCS: 99282